=== PATIENT | male | born 1980 | race Caucasian/White ===

== ENCOUNTER 2018-10-31 18:31 | Emergency (ER) | payer OTHER ==
[2018-10-31] MEDS: DIPHTH/TET/ACEL PERTUSS (ADULT) 0.5 ML VIAL IM* (19:25)
== END 2018-10-31 19:54 | disposition home or self-care (01) ==
LOC: FTE 18:31
DX: S01.112A Laceration without foreign body of left eyelid and periocular area, initial encounter (principal); W22.03XA Walked into furniture, initial encounter; Y92.9 Unspecified place or not applicable; Z23 Encounter for immunization
CPT/HCPCS: 12011; 90471; 90715; 99283-25

== ENCOUNTER 2018-11-05 15:47 | Emergency (ER) | payer OTHER | END 2018-11-05 16:55 | disposition home or self-care (01) | LOC: FTE 15:47 | DX: Z48.02 Encounter for removal of sutures (principal) | CPT/HCPCS: 99281; Z7502 ==

== ENCOUNTER 2018-12-15 16:29 | Emergency (ER) | payer OTHER ==
[2018-12-15] MEDS: IBUPROFEN 600 MG TAB PO (17:58)
== END 2018-12-15 18:43 | disposition home or self-care (01) ==
LOC: FTE 18:43
DX: S99.921A Unspecified injury of right foot, initial encounter (principal); W20.8XXA Other cause of strike by thrown, projected or falling object, initial encounter; Y92.9 Unspecified place or not applicable
CPT/HCPCS: 73660; 99283-25